=== PATIENT | female | born 1995 | race Caucasian/White ===

== ENCOUNTER 2022-09-10 18:48 | Emergency (ER) | payer OTHER ==
[~2022-09-10] VITALS: Ht 157.5 cm; Wt 50.8 kg
[2022-09-10 18:55] VITALS: BP 122/77
--- NOTE | 2022-09-10 19:28 | NUR ---
PT TO BED 3 AND PROVIDED PT A URINE CUP
--- NOTE | 2022-09-10 19:35 | NUR ---
VAGINAL SPOTTING TODAY. + X 1 WEEK AGO. ABD CRAMPS. DENIES DYSURIA. A0
[2022-09-10 19:50] LABS: APPEARANCE,URINE CLEAR (CLEAR); BILIRUBIN,URINE NEGATIVE (NEGATIVE); BLOOD, URINE 3+ (NEGATIVE); COLOR,URINE YELLOW (YELLOW); LEUKOCYTE ESTERASE ,URINE NEGATIVE (NEGATIVE); NITRITE, URINE NEGATIVE (NEGATIVE); UGLUCOSE NEGATIVE (NEGATIVE)
[2022-09-10 20:06] LABS: BASOPHILS # (AUTO) 0.1 K/uL (0.00-0.22); EOSINOPHILS # (AUTO) 0.1 K/uL (0-0.4); EOSINOPHILS % (AUTO) 1.4 % (0.0-4.0); HEMATOCRIT 37.3 % (36-48); HEMOGLOBIN 12.4 g/dL (12.0-16.0); LYMPHOCYTES # (AUTO) 3.4 K/uL (2.5-16.5); LYMPHOCYTES % (AUTO) 42.9 % (20.5-51.1); MEAN CORPUSCULAR HEMOGLOBIN 29 pg (27-31); MEAN CORPUSCULAR HGB CONC 33 g/dL (33-37); MEAN CORPUSCULAR VOLUME 86.9 fL (80-94); MONOCYTES # (AUTO) 0.5 K/uL (0.8-1.0); MONOCYTES % (AUTO) 5.8 % (1.7-9.3); NEUTROPHILS # (AUTO) 3.8 K/uL (1.8-7.7); NEUTROPHILS % (AUTO) 48.9 % (42.2-75.2); PLATELET COUNT (AUTO) 260 K/uL (140-450); RED CELL DISTRIBUTION WIDTH 13.9 % (11.6-13.7); WHITE BLOOD COUNT (AUTO) 7.9 K/uL (4.8-10.8)
[2022-09-10 20:11] LABS: RBC,URINE >20 (MANY) /HPF (0-5); WBC,URINE 0-5 /HPF (0-5)
[2022-09-10 20:12] LABS: TRICHOMONAS,URINE None Seen /HPF (None Seen); YEAST,URINE None Seen /HPF (None Seen)
[2022-09-10 20:26] LABS: ALBUMIN 4.1 g/dL (3.4-5.0); CARBON DIOXIDE 24.7 mmol/L (21-32); POTASSIUM 3.7 mmol/L (3.5-5.1); TOTAL BILIRUBIN 0.2 mg/dL (0.0-1.0)
--- NOTE | 2022-09-10 20:30 | NUR ---
covid swab was sent to the lab
[2022-09-10 20:48] LABS: CREATININE 0.6 mg/dL (0.6-1.3)
[2022-09-10 21:51] VITALS: BP 122/77
--- NOTE | 2022-09-10 21:53 | NUR ---
Patient discharged with v/s stable. Written and verbal after care instructions given and explained. Patient verbalized understanding. Ambulatory with steady gait. All questions addressed prior to discharge. Advised to follow up with PMD. pt left woith her belongings.
== END 2022-09-10 21:53 | disposition home or self-care (01) ==
LOC: MED 18:48
DX: O20.0 Threatened abortion (principal); Z20.822 Contact with and (suspected) exposure to COVID-19; Z3A.01 Less than 8 weeks gestation of pregnancy
CPT/HCPCS: 36415; 80053; 81001; 81025; 84702; 85025; 99283

== ENCOUNTER 2023-09-15 15:46 | Emergency (ER) | payer OTHER ==
[~2023-09-15] VITALS: Ht 157.5 cm; Wt 51.3 kg
[2023-09-15 15:48] VITALS: BP 110/66; PULSE 114; RESP 18; TEMP 98.5; O2SAT 100
[2023-09-15 16:20] LABS: BASOPHILS # (AUTO) 0.1 K/uL (0.00-0.22); BASOPHILS % (AUTO) 0.6 % (0.0-2.0); EOSINOPHILS # (AUTO) 0.1 K/uL (0-0.4); EOSINOPHILS % (AUTO) 0.8 % (0.0-4.0); HEMATOCRIT 35.9 % (36-48); HEMOGLOBIN 12.2 g/dL (12.0-16.0); LYMPHOCYTES % (AUTO) 32.9 % (20.5-51.1); MEAN CORPUSCULAR HEMOGLOBIN 29 pg (27-31); MEAN CORPUSCULAR HGB CONC 34 g/dL (33-37); MONOCYTES # (AUTO) 0.4 K/uL (0.8-1.0); MONOCYTES % (AUTO) 4.7 % (1.7-9.3); NEUTROPHILS # (AUTO) 5.6 K/uL (1.8-7.7); PLATELET COUNT (AUTO) 259 K/uL (140-450); RED BLOOD CELL COUNT(AUTO) 4.17 MIL/uL (4.20-5.40); RED CELL DISTRIBUTION WIDTH 13.3 % (11.6-13.7); WHITE BLOOD COUNT (AUTO) 9.2 K/uL (4.8-10.8)
[2023-09-15 16:31] LABS: ANION GAP 16.1 (8-16); CALCIUM 9.2 mg/dL (8.5-10.1); CARBON DIOXIDE 24.1 mmol/L (21-32); CREATININE 0.6 mg/dL (0.6-1.3); POTASSIUM 4.2 mmol/L (3.5-5.1)
[2023-09-15 16:35] LABS: ALBUMIN 3.7 g/dL (3.4-5.0); BILIRUBIN,DIRECT 0.1 mg/dL (0.0-0.3); TOTAL BILIRUBIN 0.2 mg/dL (0.0-1.0); TOTAL PROTEIN, SERUM 7.4 g/dL (6.4-8.2)
[2023-09-15 17:21] LABS: APPEARANCE,URINE CLEAR (CLEAR); BILIRUBIN,URINE NEGATIVE (NEGATIVE); BLOOD, URINE TRACE-I (NEGATIVE); COLOR,URINE YELLOW (YELLOW); LEUKOCYTE ESTERASE ,URINE NEGATIVE (NEGATIVE); NITRITE, URINE NEGATIVE (NEGATIVE); PROTEIN,URINE NEGATIVE (NEGATIVE); UGLUCOSE NEGATIVE (NEGATIVE); UROBILINOGEN,URINE 0.2 EU/dL (0.2 - 1)
[2023-09-15 17:32] VITALS: BP 97/61; PULSE 71; RESP 18; O2SAT 99
== END 2023-09-15 17:33 | disposition home or self-care (01) ==
LOC: MED 15:46
DX: O20.0 Threatened abortion (principal); O26.892 Other specified pregnancy related conditions, second trimester; R35.0 Frequency of micturition; Z3A.15 15 weeks gestation of pregnancy
CPT/HCPCS: 36415; 76805; 80048; 80076; 81003; 81025; 85025; 86886; 86900; 86901; 99284; Q0092

== ENCOUNTER 2024-03-15 09:29 | Emergency (ER) | payer OTHER ==
[~2024-03-15] VITALS: Ht 157.5 cm; Wt 52.2 kg
[2024-03-15 09:31] VITALS: BP 103/67; PULSE 85; RESP 18; TEMP 98.3; O2SAT 98
[2024-03-15 10:42] LABS: BILIRUBIN,URINE NEGATIVE (NEGATIVE); BLOOD, URINE 3+ (NEGATIVE); COLOR,URINE YELLOW (YELLOW); LEUKOCYTE ESTERASE ,URINE 1+ (NEGATIVE); NITRITE, URINE NEGATIVE (NEGATIVE); PROTEIN,URINE NEGATIVE (NEGATIVE); UGLUCOSE NEGATIVE (NEGATIVE); UROBILINOGEN,URINE 0.2 EU/dL (0.2 - 1)
[2024-03-15 10:43] LABS: APPEARANCE,URINE SLIGHTLY HAZY (CLEAR)
[2024-03-15 10:52] LABS: BACTERIA,URINE 2+ /HPF (None Seen); MUCUS,URINE None Seen /LPF (None Seen); SQUAMOUS EPITHELIAL CELL,UR 4-10 (MOD) /LPF (0-3 (FEW)); WBC,URINE 0-5 /HPF (0-5)
[2024-03-15] MEDS ORDERED: CEPH-588 PO (13:27)
[2024-03-15 13:35] VITALS: BP 109/73; PULSE 65; RESP 16; TEMP 98.1; O2SAT 99
== END 2024-03-15 13:35 | disposition home or self-care (01) ==
LOC: MED 09:29
DX: N39.0 Urinary tract infection, site not specified (principal); R22.31 Localized swelling, mass and lump, right upper limb; Z79.899 Other long term (current) drug therapy
CPT/HCPCS: 76856; 81001; 81025; 87086; 93976; 99284; Q0092